=== PATIENT | male | born 1990 | race Hispanic/Latino ===

== ENCOUNTER 2019-04-27 19:10 | Emergency (ER) | payer OTHER ==
--- NOTE | 2019-04-27 19:57 | RAD REPORT ---
EXAM DESCRIPTION: RAD - Hand Right 3 View - 04/27/2019 7:48 pm CLINICAL HISTORY: Laceration COMPARISON: No comparisons FINDINGS: No fracture, dislocation or radiopaque foreign body.
[2019-04-27] MEDS ORDERED: LIDOCAINE 1% MPF 5 ML VIAL ONE (20:08)
[2019-04-27] MEDS ORDERED: TETANUS & DIPHTHERIA TOX,ADULT 0.5 ML VIAL ONE (20:19)
--- NOTE | 2019-04-27 21:04 | ER ---
Nurse's Notes [facility] Name: Everton Montero Age: 29 yrs Sex: Male : 1990 Arrival Date: 04/27/2019 Time: 19:15 Bed 13 Private MD: Diagnosis: Laceration without foreign body of right hand Presentation: 04/27 19:17 Presenting complaint: Patient states: [place] [address] Bleeding controlled CMS intact. Transition of care: patient was not received from another setting of care. Complicating Factors: There are no complicating factors for this patient. Onset of symptoms was April 27, 2019. Risk Assessment: Do you want to hurt yourself or someone else? Patient reports no desire to harm self or others. Initial Sepsis Screen: Does the patient meet any 2 criteria? No. Patient's initial sepsis screen is negative. Does the patient have a suspected source of infection? No. Patient's initial sepsis screen is negative. Care prior to arrival: None. 19:17 Method Of Arrival: Ambulatory [facility] 19:17 Acuity: SO 4 la1 Historical: - Allergies: 19:17 No Known Allergies; la1 - PMHx: 19:17 None; la1 - Immunization history:: Adult Immunizations up to date. - Social history:: Smoking status: Patient/guardian denies using tobacco. - Ebola Screening: : No symptoms or risks identified at this time. Screenin:17 Abuse screen: Denies threats or abuse. Nutritional screening: No deficits noted. jb4 Tuberculosis screening: No symptoms or risk factors identified. Fall Risk None identified. Assessment: 19:25 General: Appears in no apparent distress. comfortable, Behavior is calm, cooperative, jb4 appropriate for age. Pain: Complains of pain in heel of right hand Pain does not radiate. Pain currently is 1 out of 10 on a pain scale. Quality of pain is described as stinging. Neuro: Level of Consciousness is awake, alert, obeys commands, Oriented to person, place, time, situation. Cardiovascular: Patient's skin is warm and dry. Respiratory: Airway is patent Respiratory effort is even, unlabored, Respiratory pattern is regular, symmetrical. GI: No signs and/or symptoms were reported involving the gastrointestinal system. : No signs and/or symptoms were reported regarding the genitourinary system. EENT: No signs and/or symptoms were reported regarding the EENT system. Derm: Skin is intact, Skin is pink, warm \T\ dry. Musculoskeletal: Circulation, motion, and sensation intact. Injury Description: Laceration is clean, 2.6 to 7.5 cm long, not bleeding. 20:24 Reassessment: Patient appears in no apparent distress at this time. Patient and/or jb4 family updated on plan of care and expected duration. Pain level reassessed. Patient is alert, oriented x 3, equal unlabored respirations, skin warm/dry/pink. 21:40 Reassessment: Patient appears in no apparent distress at this time. Patient and/or jb4 family updated on plan of care and expected duration. Pain level reassessed. Patient is alert, oriented x 3, equal unlabored respirations, skin warm/dry/pink. Left ED ambulatory with family, verbalized understanding of D/c and follow up instrucitons. Vital Signs: 19:17 BP 157 / 90; Pulse 75; Resp 16; Temp 97.4; Pulse Ox 98% on R/A; Weight 89.36 kg; la1 21:40 BP 138 / 99; Pulse 61; Resp 16; Pulse Ox 96% on R/A; jb4 ED Course: 19:15 Patient arrived in ED. mr 19:17 Arm band placed on left wrist. la1 19:17 Patient has correct armband on for positive identification. Bed in low position. Call jb4 light in reach. Side rails up X 1. Pulse ox on. NIBP on. 19:18 Triage completed. la1 19:20 Trevor Ibanez RN is Primary Nurse. jb4 19:24 Kishor Blandon NP is PHCP. pm1 19:24 Joseph Jones MD is Attending Physician. pm1 19:49 Hand Right 3 View XRAY In Process Unspecified. EDMS 21:00 Assist provider with laceration repair on right hand that was between 2.6 to 7.5 cm jb4 using sutures. 21:00 Patient did not have IV access during this emergency room visit. jb4 Administered Medications: 20:10 Drug: Tetanus-Diphtheria Toxoid Adult 0.5 ml {Academic Intern: kaleo. Exp: jb4 01/12/2021. Lot #: [id number]. } Route: IM; Site: right deltoid; 20:30 Drug: Lidocaine (1 %) 5 ml {Note: administered by ER provider..} Volume: 5 ml; Route: jb4 Infiltration; Outcome: 21:03 Discharge ordered by . pm1 21:40 Discharged to home ambulatory, with family. jb4 21:40 Condition: stable 21:40 Discharge instructions given to patient, family, Instructed on discharge instructions, follow up and referral plans. medication usage, Demonstrated understanding of instructions, follow-up care, medications, Prescriptions given X 1. 21:46 Patient left the ED. jb4 Signatures: Dispatcher [employer] EDNC LambChristy raymundo Lee, RN RN la1 Kishor Blandon, GENET ENGRAVER SET UP OPERATOR pm1 Trevor Ibanez, RN RN jb4
--- NOTE | 2019-04-27 21:04 | EDPHYS ---
Physician Documentation [facility] [place], [place] Name: Everton Montero Age: 29 yrs Sex: Male : 1990 Arrival Date: 04/27/2019 Time: 19:15 Bed 13 Private MD: ED Physician Joseph Jones HPI: 04/27 21:01 This 29 yrs old Male presents to ER via Ambulatory with complaints of pm1 Laceration To Right Hand. 21:01 The patient has a laceration related to: falling from a standing position, occurred pm1 outdoors, [place] The laceration(s) is(are) located on the heel of right hand. Onset: The symptoms/episode began/occurred just prior to arrival. Associated signs and symptoms: The patient has no apparent associated signs or symptoms, Pertinent negatives: deformity, dizziness, heavy bleeding, numbness distal to injury, suspected foreign body. The patient has not experienced similar symptoms in the past. The patient has not recently seen a physician, the patient's primary care provider is Dr. Kraft. Historical: - Allergies: 19:17 No Known Allergies; la1 - PMHx: 19:17 None; la1 - Immunization history:: Adult Immunizations up to date. - Social history:: Smoking status: Patient/guardian denies using tobacco. - Ebola Screening: : No symptoms or risks identified at this time. ROS: 21:01 Constitutional: Negative for fever, chills, and weight loss, Eyes: Negative for injury, pm1 pain, redness, and discharge, ENT: Negative for injury, pain, and discharge, Neck: Negative for injury, pain, and swelling, Cardiovascular: Negative for chest pain, palpitations, and edema, Respiratory: Negative for shortness of breath, cough, wheezing, and pleuritic chest pain, Abdomen/GI: Negative for abdominal pain, nausea, vomiting, diarrhea, and constipation, Back: Negative for injury and pain, MS/Extremity: Negative for injury and deformity. 21:01 Neuro: Negative for headache, weakness, numbness, tingling, and seizure. 21:01 Skin: Positive for laceration(s), of the heel of right hand. Exam: 21:01 Constitutional: This is a well developed, well nourished patient who is awake, alert, pm1 and in no acute distress. Head/Face: Normocephalic, atraumatic. Neck: Trachea midline, no thyromegaly or masses palpated, and no cervical lymphadenopathy. Supple, full range of motion without nuchal rigidity, or vertebral point tenderness. No Meningismus. Chest/axilla: Normal chest wall appearance and motion. Nontender with no deformity. No lesions are appreciated. Cardiovascular: Regular rate and rhythm with a normal S1 and S2. No gallops, murmurs, or rubs. Normal PMI, no JVD. No pulse deficits. Respiratory: Lungs have equal breath sounds bilaterally, clear to auscultation and percussion. No rales, rhonchi or wheezes noted. No increased work of breathing, no retractions or nasal flaring. Back: No spinal tenderness. No costovertebral tenderness. Full range of motion. 21:01 Skin: Appearance: normal except for affected area, injury, laceration(s), of the heel of right hand. 21:01 Neuro: Orientation: is normal, Motor: is normal, moves all fours, Sensation: is normal, no obvious gross deficits. Vital Signs: 19:17 BP 157 / 90; Pulse 75; Resp 16; Temp 97.4; Pulse Ox 98% on R/A; Weight 89.36 kg; la1 21:40 BP 138 / 99; Pulse 61; Resp 16; Pulse Ox 96% on R/A; jb4 Laceration: 21:01 Wound Repair of 4cm ( 1.6in ) subcutaneous laceration to heel of right hand. Linear pm1 shaped.. Distal neuro/vascular/tendon intact. Anesthesia: Local anesthetic administered with 2 mls of 1% lidocaine. Wound prep: Extensive cleansing with betadine by nurse, Wound irrigation with saline by me, Wound explored extensively, Copious irrigation. Skin closed with 7 4-0 Prolene using simple sutures and sterile technique. Dressed with Neosporin, 4x4's. Patient tolerated well. MDM: 19:24 Patient medically screened. pm1 21:01 Data reviewed: vital signs. Data interpreted: Pulse oximetry: on room air is 98 %. pm1 Interpretation: normal. Counseling: I had a detailed discussion with the patient and/or guardian regarding: the historical points, exam findings, and any diagnostic results supporting the discharge/admit diagnosis, radiology results, the need for outpatient follow up, suture removal in 10-14 days, to return to the emergency department if symptoms worsen or persist or if there are any questions or concerns that arise at home. 04/27 19:28 Order name: Hand Right 3 View XRAY; Complete Time: 20:09 pm1 04/27 19:28 Order name: Prolene, Sutures; Complete Time: 20:09 pm1 04/27 19:28 Order name: Dressing - Wound; Complete Time: 21:46 pm1 04/27 19:28 Order name: Gloves, Sterile; Complete Time: 20:09 pm1 04/27 19:28 Order name: Setup Suture Tray; Complete Time: 20:10 pm1 Administered Medications: 20:10 Drug: Tetanus-Diphtheria Toxoid Adult 0.5 ml {Pulper: my[employer]Q. Exp: jb4 01/12/2021. Lot #: [id number]. } Route: IM; Site: right deltoid; 20:30 Drug: Lidocaine (1 %) 5 ml {Note: administered by ER provider..} Volume: 5 ml; Route: jb4 Infiltration; Disposition: 04/28 01:33 Co-signature as Attending Physician, Joseph Jones MD. nat Disposition: 04/27/19 21:03 Discharged to Home. Impression: Laceration without foreign body of right hand. - Condition is Stable. - Discharge Instructions: Laceration Care, Adult. - Prescriptions for Doxycycline Hyclate 100 mg Oral Tablet - take 1 tablet by ORAL route every 12 hours; 20 tablet. - Medication Reconciliation Form, Thank You Letter, Antibiotic Education, Prescription Opioid Use form. - Follow up: Emergency Department; When: As needed; Reason: Worsening of condition. Follow up: Private Physician; When: 10 - 14 days; Reason: Recheck today's complaints, Continuance of care, Staple/Suture removal, Re-evaluation by your physician. - Problem is new. - Symptoms have improved. Signatures: Dispatcher [employer] EDMS Joseph Jones MD MD pkl Jose J Esquivel RN RN la1 Kishor Blandon, LINE PILOT LINE PILOT pm1 Trevor Ibanez RN RN jb4 Corrections: (The following items were deleted from the chart) 04/27 21:46 21:03 04/27/2019 21:03 Discharged to Home. Impression: Laceration without foreign body jb4 of right hand. Condition is Stable. Forms are Medication Reconciliation Form, Thank You Letter, Antibiotic Education, Prescription Opioid Use. Follow up: Emergency Department; When: As needed; Reason: Worsening of condition. Follow up: Private Physician; When: 10 - 14 days; Reason: Recheck today's complaints, Continuance of care, Staple/Suture removal, Re-evaluation by your physician. Problem is new. Symptoms have improved. pm1
== END 2019-04-27 21:46 | disposition home or self-care (01) ==
LOC: ER 19:10
PROC: 0JQJ0ZZ Repair Right Hand Subcutaneous Tissue and Fascia, Open Approach (ICD-10-PCS; principal; 2019-04-27)
DX: S61.411A Laceration without foreign body of right hand, initial encounter (principal); W45.8XXA Other foreign body or object entering through skin, initial encounter; W18.30XA Fall on same level, unspecified, initial encounter; Y92.832 Beach as the place of occurrence of the external cause; Z23 Encounter for immunization
CPT/HCPCS: 90471; 90714; 99284